=== PATIENT | female | born 2005 | race Caucasian/White ===

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

== ENCOUNTER 2024-03-09 22:59 | Emergency (ER) | payer MEDICAID ==
[~2024-03-09] VITALS: Ht 167.6 cm; Wt 75.0 kg
[~2024-03-09 22:59] MED LIST changes: +CEPH500T MT; +MECL-299 PO; +NAPR-681 PO; +SULF1TAB48 MT
[2024-03-09 23:17] VITALS: TEMP 98.2; O2SAT 98
[2024-03-10] MEDS: MORPHINE SULFATE 4 MG/ML INJ (FOR IV/IM USE) IV STA (01:14)
[2024-03-10] MEDS: SODIUM CHLORIDE 0.9% 1,000 ML IV ONE (01:15)
[2024-03-10] MEDS: ONDANSETRON HCL 4MG/2ML INJ IV STA (01:15)
[2024-03-10 02:13] LABS: BASOPHILS % 0.2 % (0.0-2.0); EOSINOPHILS % 1.3 % (0.0-5.0); HEMATOCRIT. 37.4 % (36.0-48.0); LYMPHOCYTES % 19.2 % (20.0-50.0); MEAN CORPUSCULAR HEMOGLOBIN 28.2 pg (28.0-32.0); MEAN CORPUSCULAR HGB CONC 31.9 g/dL (31.0-37.0); MEAN CORPUSCULAR VOLUME 88.4 fL (81.0-99.0); MEAN PLATELET VOLUME 8.5 fl (7.4-10.4); MONOCYTES % 8.4 % (2.0-8.0); NEUTROPHILS % 70.9 % (40.0-76.0); PLATELET 288 x1000/uL (130-400); RED BLOOD CELL COUNT 4.24 mill/uL (4.2-5.4); WHITE BLOOD COUNT 17.2 x1000/uL (4.5-11.0)
[2024-03-10 02:19] LABS: CHLORIDE 106 mEq/L (98-107); POTASSIUM 3.7 mEq/L (3.5-5.1); SODIUM 137 mEq/L (136-145)
[2024-03-10 02:20] LABS: CALCIUM 9.4 mg/dL (8.7-10.4); CARBON DIOXIDE 25 mEq/L (21-32)
[2024-03-10 02:25] LABS: CREATININE 0.7 mg/dL (0.6-1.0); GLUCOSE 118 mg/dL (70-105); UREA NITROGEN BLOOD 9 mg/dL (9-23)
[2024-03-10 02:43] LABS: HCG SCREEN NEGATIVE
[2024-03-10] MEDS ORDERED: IBUP-2029 MT (02:52)
[2024-03-10] MEDS ORDERED: METH-653 MT (02:52)
[2024-03-10 03:57] VITALS: BP 110/64; PULSE 82; RESP 15
[2024-03-10] MEDS ORDERED: IOHEXOL-300 100 ML BOTTLE ONE (05:42)
== END 2024-03-10 04:07 | disposition home or self-care (01) ==
LOC: ER 23:19
DX: S16.1XXA Strain of muscle, fascia and tendon at neck level, initial encounter (principal); S39.91XA Unspecified injury of abdomen, initial encounter; S39.012A Strain of muscle, fascia and tendon of lower back, initial encounter; J45.909 Unspecified asthma, uncomplicated; V49.49XA Driver injured in collision with other motor vehicles in traffic accident, initial encounter; Y93.89 Activity, other specified; Y92.89 Other specified places as the place of occurrence of the external cause; Y99.8 Other external cause status
CPT/HCPCS: 99285; 80048; 84703; 85025; 86850; 86900; 86901; 36415; 71045; 70450; 72125; 74177; 96361; 96374; 96375; Q9967; J2405; J2270; J7030; Z7610

== ENCOUNTER 2024-09-25 20:46 | Emergency (ER) | payer MEDICAID ==
[~2024-09-25] VITALS: Ht 162.6 cm; Wt 75.0 kg
[~2024-09-25 20:46] MED LIST changes: +IBUP-2029 MT; +METH-653 MT
[2024-09-25 20:52] VITALS: O2SAT 98
[2024-09-25 21:04] VITALS: BP 126/72; PULSE 100; RESP 16; TEMP 97.9; O2SAT 98
== END 2024-09-25 23:54 | disposition home or self-care (01) ==
LOC: ER 20:46
DX: S93.401A Sprain of unspecified ligament of right ankle, initial encounter (principal); S93.402A Sprain of unspecified ligament of left ankle, initial encounter; J45.909 Unspecified asthma, uncomplicated; Z91.010 Allergy to peanuts; Z91.012 Allergy to eggs; Z98.890 Other specified postprocedural states; W10.9XXA Fall (on) (from) unspecified stairs and steps, initial encounter; Y93.89 Activity, other specified; Y92.89 Other specified places as the place of occurrence of the external cause; Y99.8 Other external cause status
CPT/HCPCS: 29515; 73590; 73610; 73630; 99284

== ENCOUNTER 2024-10-22 14:19 | Emergency (ER) | payer MEDICAID ==
[~2024-10-22] VITALS: Ht 165.1 cm; Wt 77.0 kg
[2024-10-22 14:26] VITALS: O2SAT 99
[2024-10-22 14:27] VITALS: BP 124/76; PULSE 99; RESP 18; TEMP 37; O2SAT 96
== END 2024-10-22 20:48 | disposition home or self-care (01) ==
LOC: ER 14:19
DX: N39.0 Urinary tract infection, site not specified (principal); J06.9 Acute upper respiratory infection, unspecified; J45.909 Unspecified asthma, uncomplicated
CPT/HCPCS: 71045; 99283

== ENCOUNTER 2025-02-19 18:20 | Emergency (ER) | payer MEDICAID ==
[~2025-02-19] VITALS: Ht 165.1 cm; Wt 72.0 kg
[2025-02-19 18:21] VITALS: PULSE 88; RESP 16; O2SAT 97
[2025-02-19 18:36] VITALS: BP 131/84; TEMP 36.7; O2SAT 98
== END 2025-02-19 20:17 | disposition home or self-care (01) ==
LOC: ER 18:20
DX: Z00.00 Encounter for general adult medical examination without abnormal findings (principal); J45.909 Unspecified asthma, uncomplicated; Z91.012 Allergy to eggs; Z91.010 Allergy to peanuts; Z79.899 Other long term (current) drug therapy; Z98.890 Other specified postprocedural states
CPT/HCPCS: 36415; 84702; 99283